=== PATIENT | female | born 1945 | race Caucasian/White ===

== ENCOUNTER 2017-01-12 09:41 | Emergency (ER) | payer OTHER ==
[~2017-01-12] VITALS: Ht 172.7 cm; Wt 49.5 kg
[2017-01-12 09:45] VITALS: BP 147/99; PULSE 105; RESP 16; O2SAT 100
[2017-01-12 10:47] LABS: BASOPHILS % (AUTO) 0.4 % (0-3); EOSINOPHILS % (AUTO) 0.7 % (0-5); MONOCYTES % (AUTO) 6.8 % (4-12); Mean Corpuscular Hemoglobin 31.4 pg (27.0-35.0); Mean Corpuscular Volume 90.9 fL (81-100); NEUTROPHILS % (AUTO) 69.7 % (40-74); Platelet Count 237 bil/L (150-400)
--- NOTE | 2017-01-12 10:47 | ED.REPORT ---
HPI-Psychiatric Illness Date of Service Jan 12, 2017 ED Provider: Jun Gutiérrez MD History of Present Illness: 71 year old female brought from [facility]. Patient has had a depressed affect recently and been isolating herself in her room. At times staff at [facility] noted her speaking in a childlike voice. She has a history of alcohol use and been abstinent recently but admits to thoughts of relapse. She has not actually relapsed. She has no suicidal ideation or intent. Presently staying at [facility]. Requesting assistance with referral to psychiatric care. Her primary care is with [facility]. Nursing Notes Stated Complaint: MENTAL EVAL Chief Complaint: Psychiatric Complaint Allergies: Coded Allergies: codeine (Verified Allergy, Mild, VOMITING, 01/12/17) General Time Seen by MD: 10:10 Chief Complaint Depressed Hx Obtained From: Patient, Sales And Marketing Intern Arrived By: Walk-in Severity: Current: No pain currently Associated with: Reports: Anxiety, Denies: Fever, Incoherence, Violence Risk-Psychiatric Illness Suicide Risk Stratification RF Statements: Risk factors reviewed Past Medical History Smoking History Current Every Day Smoker Social History Alcohol Use: In recovery Drug Use: Denies drug use Other Social History: , Lives in rehab facility Ambulatory Status Independent Review of Systems Complete sys rev & neg: except as marked. Physical Exam Initial Vital Signs Vital Signs (First) Date Time Temp Pulse Resp B/P Pulse Ox O2 Delivery O2 Flow Rate FiO2 01/12/17 09:45 36.5 105 16 147/99 100 Room Air Head / Eyes: Atraumatic, Normocephalic ENT: Mucous membranes moist, Conjunctiva normal Neck: Supple, Non-tender Respiratory: Breath sounds normal Cardiovascular: Regular rate & rhythm, Heart sounds normal Skin: Warm, Dry General/Constitutional: Awake, Alert, No acute distress Behavior: Positive: Tearful Appearance / Presentation: Positive: Underweight Neurologic: Oriented X3, No motor deficits, No sensory deficits Psychiatric: Affect NL, Not suicidal, Not homicidal, No hallucinations Abnormal Mood/Affect: Positive: Depressed, Hopeless Interpretation & Diagnostics Lab Results Interpretation Result Diagram: 01/12/17 1037 01/12/17 1037 Test 01/12/17 10:37 01/12/17 12:19 White Blood Count 8.4th/mm3 (3.8-10.1) Red Blood Count 5.06mil/mm3 (3.90-5.20) Hemoglobin 15.9g/dL (12.0-15.6) Hematocrit 46.0% (35.0-46.0) Mean Corpuscular Volume 90.9fL (81-100) Mean Corpuscular Hemoglobin 31.4pg (27.0-35.0) Mean Corpuscular Hemoglobin Concent 34.6% (32.0-37.0) Red Cell Distribution Width 13.7% (12.3-15.4) Platelet Count 237bil/L (150-400) Neutrophils (%) (Auto) 69.7% (40-74) Lymphocytes (%) (Auto) 22.2% (14-46) Monocytes (%) (Auto) 6.8% (4-12) Eosinophils (%) (Auto) 0.7% (0-5) Basophils (%) (Auto) 0.4% (0-3) Prothrombin Time 11.2sec (8.1-12.5) Prothromb Time International Ratio 1.05ratio Sodium Level 134mEq/L (134-144) Potassium Level 4.5mEq/L (3.5-5.2) Chloride Level 94mEq/L (97-108) Carbon Dioxide Level 18mmol/L (18-29) Blood Urea Nitrogen 17mg/dL (8-27) Creatinine 0.87mg/dL (0.57-1.00) Estimat Glomerular Filtration Rate 92mL/min (>59) Glucose Level 78mg/dL (60-99) Calcium Level 9.9mg/dL (8.5-10.1) Magnesium Level 1.9mg/dL (1.6-2.6) Total Bilirubin 0.6mg/dL (0.0-1.2) Aspartate Amino Transf (AST/SGOT) 27U/L (0-50) Alanine Aminotransferase (ALT/SGPT) 18U/L (0-32) Alkaline Phosphatase 79U/L (25-165) Troponin T < 0.010ug/L (0.0-0.011) Total Protein 7.4g/dL (6.4-8.4) Albumin 4.8g/dL (3.4-5.0) Urine Color Yellow (YELLOW) Urine Appearance Clear (CLEAR,HAZY) Urine pH 5.5 (5.0-8.0) Urine Specific [place] 1.010 (1.003-1.035) Urine Protein Negativemg/dL (NEG,TRACE) Urine Glucose (UA) Negativemg/dL (NEGATIVE) Urine Ketones 15mg/dL (NEGATIVE) Urine Occult Blood Trace (NEGATIVE) Urine Nitrite Negative (NEGATIVE) Urine Bilirubin Negative (NEGATIVE) Urine Urobilinogen Normalmg/dL (NORMAL) Urine Leukocyte Esterase Small (NEGATIVE) Urine RBC 0-2/hpf (0-2) Urine WBC 0-5/hpf (0-5) Urine Epithelial Cells Occasional/hpf (NONE-MOD) Urine Crystals None seen (NONE SEEN) Urine Bacteria Few/hpf (NONE-FEW) Urine Hyaline Casts Occasional/lpf (NONE) Urine Granular Casts None seen (NONE SEEN) Urine Waxy Casts None seen (NONE SEEN) Urine Red Blood Cell Casts None seen (NONE SEEN) Urine White Blood Cell Casts None seen (NONE SEEN) Urine Mucus Present (None Seen) Urine Trichomonas None seen (NONE SEEN) Urine Yeast None (NONE SEEN) Urinalysis Comment None Urine Culture Reflexed Indicated ECG Interpretation Interpreted by: ED physician Normal ECG Interpretation: Normal sinus rhythm, Normal axis Abnormal Rate: 100 Rhythm / Conduction: Tachycardia Re-Eval/Medical Decision Med Decision/Clinical Course Patient is medically stable. No concerns for medical pathology of this time. urinalysis shows benign findings but is not concerning for bacterial infection at this time however was sent for culture, results pending. Patient states that she is generally in decent health, and her main concerns are related to her recent depressive episode. She continues to state that she is not suicidal nor homicidal. With this in mind I feel it is not appropriate to admit her to in inpatient mental health facility at this point, however an outpatient mental health referral would be appropriate in this case. Counseled Regarding: Diagnosis, Lab results, Need for follow-up, When/why to return to ED Discharge & Departure Impression: Primary Impression: Depression Major depression recurrence: recurrent Active/Remission status: currently active Psychotic features: without psychotic features Additional Impression: Anxiety Disposition: Home Discharge Condition All VS Reviewed: Yes Condition: Stable Additional Instructions: Refer to outpatient mental health services chart and select an appropriate provider. Continue to attend 12 step program meetings for AA, please do not drink alcohol Follow-up with primary care Attending Statement Seen and examined with Dr Milian on 01/12. Agree with above,. Erik Milian DO Jan 12, 2017 10:47 Jun Gutiérrez MD Jan 12, 2017 19:27
[2017-01-12 11:25] LABS: Magnesium 1.9 mg/dL (1.6-2.6)
[2017-01-12 11:28] LABS: TROPONIN T < 0.010 ug/L (0.0-0.011)
[2017-01-12 11:29] LABS: INR 1.05 ratio
[2017-01-12 12:55] LABS: APPEARANCE,URINE CLEAR (CLEAR,HAZY); COLOR,URINE YELLOW (YELLOW); PH,URINE 5.5 (5.0-8.0)
[2017-01-12 12:56] LABS: OCCULT BLOOD,URINE TRACE (NEGATIVE); UROBILINOGEN,URINE NORMAL (NORMAL)
[2017-01-12 13:21] VITALS: BP 126/83; PULSE 99; RESP 20; O2SAT 99
== END 2017-01-12 13:21 | disposition home or self-care (01) ==
LOC: SED 09:41
DX: F32.9 Major depressive disorder, single episode, unspecified (principal); F41.9 Anxiety disorder, unspecified; F17.200 Nicotine dependence, unspecified, uncomplicated; Z88.5 Allergy status to narcotic agent